=== PATIENT | female | born 1990 | race Caucasian/White ===

== ENCOUNTER 2018-12-08 15:09 | Emergency (ER) | payer BC, OTHER ==
[2018-12-08] MEDS ORDERED: KETOROLAC 30 MG/ML INJ ONE (16:18)
[2018-12-08] MEDS ORDERED: DIAZEPAM 10 MG/2 ML INJ SYRINGE ONE (16:20)
[2018-12-08] MEDS ORDERED: METHOCARBAMOL 1,000 MG/10 ML VIAL IV ONE (18:23)
[2018-12-08] MEDS ORDERED: NA CHLORIDE 0.9% 100 ML IV ONE (18:24)
[2018-12-08] MEDS ORDERED: METHOCARBAMOL 1,000 MG in NA CHLORIDE 0.9% 100 ML IV ONE (19:00)
[2018-12-08] MEDS ORDERED: HYDROMORPHONE HCL 0.5 MG/0.5 ML INJ ONE (19:40)
--- NOTE | 2018-12-08 20:14 | EDPHYS ---
Physician Documentation [facility] Name: Alexus Garcia Age: 28 yrs Sex: Female : 1990 Arrival Date: 12/08/2018 Time: 15:11 Bed 26 Private MD: ED Physician Blake Baron HPI: 12/08 17:50 This 28 yrs old Female presents to ER via Ambulatory with complaints of Back jr8 Pain, Shoulder Pain. 17:50 The patient presents with pain that is acute. The symptoms are located in the left jr8 scapular area, right scapular area and thoracic area. Onset: The symptoms/episode began/occurred acutely, today. The pain does not radiate. Associated signs and symptoms: The patient has no apparent associated signs or symptoms. The problem was sustained from unknown cause. Modifying factors: The patient symptoms are alleviated by nothing, the patient symptoms are aggravated by any movement. Severity of symptoms: At their worst the symptoms were moderate, in the emergency department the symptoms are unchanged. The patient has not experienced similar symptoms in the past. The patient has not recently seen a physician. 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 - Social history:: Smoking status: Patient uses tobacco products, smokes one-half pack cigarettes per day. - Ebola Screening: : No symptoms or risks identified at this time. ROS: 17:50 Eyes: Negative for injury, pain, redness, and discharge, ENT: Negative for injury, jr8 pain, and discharge, Neck: Negative for injury, pain, and swelling, Cardiovascular: Negative for chest pain, palpitations, and edema, Respiratory: Negative for shortness of breath, cough, wheezing, and pleuritic chest pain, Abdomen/GI: Negative for abdominal pain, nausea, vomiting, diarrhea, and constipation, MS/Extremity: Negative for injury and deformity, Skin: Negative for injury, rash, and discoloration, Neuro: Negative for headache, weakness, numbness, tingling, and seizure. 17:50 Back: Positive for pain at rest, pain with movement, of the left scapular area, right scapular area and thoracic area. Exam: 17:50 Head/Face: Normocephalic, atraumatic. Eyes: Pupils equal round and reactive to light, jr8 extra-ocular motions intact. Lids and lashes normal. Conjunctiva and sclera are non-icteric and not injected. Cornea within normal limits. Periorbital areas with no swelling, redness, or edema. ENT: Nares patent. No nasal discharge, no septal abnormalities noted. Tympanic membranes are normal and external auditory canals are clear. Oropharynx with no redness, swelling, or masses, exudates, or evidence of obstruction, uvula midline. Mucous membranes moist. Neck: Trachea midline, no thyromegaly or masses palpated, and no cervical lymphadenopathy. Supple, full range of motion without nuchal rigidity, or vertebral point tenderness. No Meningismus. Chest/axilla: Normal chest wall appearance and motion. Nontender with no deformity. No lesions are appreciated. Cardiovascular: Regular rate and rhythm with a normal S1 and S2. No gallops, murmurs, or rubs. Normal PMI, no JVD. No pulse deficits. Respiratory: Lungs have equal breath sounds bilaterally, clear to auscultation and percussion. No rales, rhonchi or wheezes noted. No increased work of breathing, no retractions or nasal flaring. Abdomen/GI: Soft, non-tender, with normal bowel sounds. No distension or tympany. No guarding or rebound. No evidence of tenderness throughout. Skin: Warm, dry with normal turgor. Normal color with no rashes, no lesions, and no evidence of cellulitis. MS/ Extremity: Pulses equal, no cyanosis. Neurovascular intact. Full, normal range of motion. Neuro: Awake and alert, GCS 15, oriented to person, place, time, and situation. Cranial nerves II-XII grossly intact. Motor strength 5/5 in all extremities. Sensory grossly intact. Cerebellar exam normal. Normal gait. 17:50 Back: pain, that is moderate, ROM is painful, with all movement, normal spinal alignment noted. Vital Signs: 15:20 BP 117 / 76; Pulse 86; Resp 16; Temp 98.8; Pulse Ox 100% on R/A; Weight 83.91 kg; la1 Height 5 ft. 3 in. (160.02 cm); 17:58 BP 107 / 75; Pulse 88; Resp 17; Pulse Ox 98% on R/A; tr5 19:10 BP 99 / 58; Pulse 79; Resp 16; Pulse Ox 99% on R/A; tr5 20:08 BP 108 / 75; Pulse 73; Resp 15; Pulse Ox 97% on R/A; tr5 15:20 Body Mass Index 32.77 (83.91 kg, 160.02 cm) la1 MDM: 16:03 Patient medically screened. jr8 17:50 Data reviewed: vital signs, nurses notes. Data interpreted: Pulse oximetry: on room air jr8 is 98 %. Interpretation: normal. Counseling: I had a detailed discussion with the patient and/or guardian regarding: the historical points, exam findings, and any diagnostic results supporting the discharge/admit diagnosis, the need for outpatient follow up, a family practitioner, to return to the emergency department if symptoms worsen or persist or if there are any questions or concerns that arise at home. Response to treatment: the patient's symptoms have mildly improved after treatment. 20:13 Response to treatment: the patient's symptoms have markedly improved after treatment. [facility] 12/08 16:08 Order name: IV; Complete Time: 16:28 jr8 Administered Medications: 16:20 Drug: TORadol - Ketorolac 15 mg Route: IVP; Site: right antecubital; tr5 17:53 Follow up: Response: Pain is unchanged, physician notified tr5 16:21 Drug: Valium 2 mg Route: IVP; Site: right antecubital; tr5 17:53 Follow up: Response: Anxiety decreased tr5 17:53 Drug: fentaNYL (PF) 50 mcg {Note: RASS:0.} Route: IVP; Site: right antecubital; tr5 18:34 Follow up: Response: Pain is decreased tr5 18:39 Drug: Robaxin 1 grams Route: IVPB; Infused Over: 1 hrs; Site: right antecubital; tr5 19:44 Drug: Dilaudid 0.5 mg Route: IVP; Site: right forearm; mg2 20:24 Follow up: Response: No adverse reaction; Marked relief of symptoms mg2 20:24 Drug: Zofran 4 mg Route: IVP; Site: right forearm; mg2 20:25 Follow up: Response: No adverse reaction; Medication administered at discharge. mg2 Disposition: 12/09 07:10 Co-signature as Attending Physician, Blake Baron MD. rn Disposition: 12/08/18 20:13 Discharged to Home. Impression: Muscle spasm of back. - Condition is Stable. - Discharge Instructions: Muscle Cramps and Spasms. - Prescriptions for Zanaflex 4 mg Oral Tablet - take 1 tablet by ORAL route every 8 hours As needed; 20 tablet. - Medication Reconciliation Form, Thank You Letter, Antibiotic Education, Prescription Opioid Use form. - Follow up: Private Physician; When: 2 - 3 days; Reason: Recheck today's complaints, Continuance of care, Re-evaluation by your physician. Signatures: Israel Coombs PA PA jmm Nieto, Roman, MD MD rn Roszak, Josh, PA PA jr8 Obi Goodwin RN RN la1 Koffi Skelton RN RN mg2 Parvez Nguyen RN RN tr5 Corrections: (The following items were deleted from the chart) 12/08 15:22 15:20 PMHx: None; jessica lopez 20:26 20:13 12/08/2018 20:13 Discharged to Home. Impression: Muscle spasm of back. Condition mg2 is Stable. Forms are Medication Reconciliation Form, Thank You Letter, Antibiotic Education, Prescription Opioid Use. Follow up: Private Physician; When: 2 - 3 days; Reason: Recheck today's complaints, Continuance of care, Re-evaluation by your physician. rossana
--- NOTE | 2018-12-08 20:14 | ER ---
Nurse's Notes [facility] Name: Alexus Garcia Age: 28 yrs Sex: Female : 1990 Arrival Date: 12/08/2018 Time: 15:11 Bed 26 Private MD: Diagnosis: Muscle spasm of back Presentation: 12/08 15:19 Presenting complaint: Patient states: I have been having pain in my upper back and neck la1 for the last three days. Transition of care: patient was not received from another setting of care. Onset of symptoms was December 08, 2018. Risk Assessment: Do you want to hurt yourself or someone else? Patient reports no desire to harm self or others. Initial Sepsis Screen: Does the patient meet any 2 criteria? No. Patient's initial sepsis screen is negative. Does the patient have a suspected source of infection? No. Patient's initial sepsis screen is negative. Care prior to arrival: None. 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 - Social history:: Smoking status: Patient uses tobacco products, smokes one-half pack cigarettes per day. - Ebola Screening: : No symptoms or risks identified at this time. Screenin:15 Abuse screen: Denies threats or abuse. Nutritional screening: No deficits noted. tr5 Tuberculosis screening: No symptoms or risk factors identified. Fall Risk None identified. Assessment: 16:15 General: Appears uncomfortable, Behavior is calm, cooperative, appropriate for age. tr5 Pain: Complains of pain in back Pain radiates to base of the skull Pain currently is 9 out of 10 on a pain scale. Quality of pain is described as aching, crampy, Pain began 1 day ago. Neuro: Level of Consciousness is awake, alert, obeys commands, Oriented to person, place, time, Methods And Procedures Analyst are equal bilaterally Moves all extremities. Gait is steady, Speech is normal. Cardiovascular: Heart tones present Capillary refill < 3 seconds Pulses are all present. Edema is absent. Respiratory: Airway is patent Respiratory effort is even, unlabored, Respiratory pattern is regular, symmetrical. GI: No signs and/or symptoms were reported involving the gastrointestinal system. : No signs and/or symptoms were reported regarding the genitourinary system. EENT: No signs and/or symptoms were reported regarding the EENT system. Derm: No signs and/or symptoms reported regarding the dermatologic system. Musculoskeletal: No signs and/or symptoms reported regarding the musculoskeletal system. 17:00 Reassessment: Patient appears in no apparent distress at this time. Patient and/or tr5 family updated on plan of care and expected duration. Pain level reassessed. Patient is alert, oriented x 3, equal unlabored respirations, skin warm/dry/pink. 18:00 Reassessment: Patient appears in no apparent distress at this time. Patient and/or tr5 family updated on plan of care and expected duration. Pain level reassessed. Patient is alert, oriented x 3, equal unlabored respirations, skin warm/dry/pink. 19:00 Reassessment: Patient appears in no apparent distress at this time. No changes from tr5 previously documented assessment. Patient and/or family updated on plan of care and expected duration. Pain level reassessed. Patient is alert, oriented x 3, equal unlabored respirations, skin warm/dry/pink. Pt still complains of pain. Provider notified. 20:25 Reassessment: patient is nauseous. provider informed and ordered for medication. mg2 Vital Signs: 15:20 BP 117 / 76; Pulse 86; Resp 16; Temp 98.8; Pulse Ox 100% on R/A; Weight 83.91 kg; la1 Height 5 ft. 3 in. (160.02 cm); 17:58 BP 107 / 75; Pulse 88; Resp 17; Pulse Ox 98% on R/A; tr5 19:10 BP 99 / 58; Pulse 79; Resp 16; Pulse Ox 99% on R/A; tr5 20:08 BP 108 / 75; Pulse 73; Resp 15; Pulse Ox 97% on R/A; tr5 15:20 Body Mass Index 32.77 (83.91 kg, 160.02 cm) la1 ED Course: 15:11 Patient arrived in ED. as 15:20 Triage completed. la1 15:20 Arm band placed on right wrist. la1 15:59 Koffi Skelton, MARYLIN is Primary Nurse. mg2 16:02 Brady Alexandra PA is PHCP. jr8 16:02 Blake Baron MD is Attending Physician. jr8 16:15 Bed in low position. Call light in reach. Side rails up X 1. tr5 16:15 Inserted saline lock: 22 gauge in right forearm, using aseptic technique. tr5 18:25 PHCP role handed off by Brady Alexandra PA jmm 18:25 Israel Coombs PA is PHCP. jm 20:12 No provider procedures requiring assistance completed. mg2 20:25 IV discontinued, intact, bleeding controlled, No redness/swelling at site. Pressure mg2 dressing applied. Administered Medications: 16:20 Drug: TORadol - Ketorolac 15 mg Route: IVP; Site: right antecubital; tr5 17:53 Follow up: Response: Pain is unchanged, physician notified tr5 16:21 Drug: Valium 2 mg Route: IVP; Site: right antecubital; tr5 17:53 Follow up: Response: Anxiety decreased tr5 17:53 Drug: fentaNYL (PF) 50 mcg {Note: RASS:0.} Route: IVP; Site: right antecubital; tr5 18:34 Follow up: Response: Pain is decreased tr5 18:39 Drug: Robaxin 1 grams Route: IVPB; Infused Over: 1 hrs; Site: right antecubital; tr5 19:44 Drug: Dilaudid 0.5 mg Route: IVP; Site: right forearm; mg2 20:24 Follow up: Response: No adverse reaction; Marked relief of symptoms mg2 20:24 Drug: Zofran 4 mg Route: IVP; Site: right forearm; mg2 20:25 Follow up: Response: No adverse reaction; Medication administered at discharge. mg2 Outcome: 20:13 Discharge ordered by . jm 20:25 Discharged to home ambulatory, with family. mg2 20:25 Condition: stable 20:25 Discharge instructions given to patient, family, Instructed on discharge instructions, follow up and referral plans. medication usage, Demonstrated understanding of instructions, follow-up care, medications, Prescriptions given X 1. 20:26 Patient left the ED. mg2 Signatures: Israel Coombs PA PA jmm Martinez, Amelia as Brady Alexandra PA PA jr8 Obi Goodwin RN Koffi Causey, RN Parvez Cabrera, RN RN tr5 Corrections: (The following items were deleted from the chart) 15: 15:20 PMHx: None; jessica lopez
[2018-12-08 20:39] VITALS: TEMP 98.8
[2018-12-08 20:42] VITALS: BP 108/75; O2SAT 97
== END 2018-12-08 20:26 | disposition home or self-care (01) ==
LOC: ER 15:09
DX: M62.830 Muscle spasm of back (principal); F17.210 Nicotine dependence, cigarettes, uncomplicated
CPT/HCPCS: 96375; 96374; 99283; J3360; J1170; J2800